=== PATIENT | female | born 1990 ===

== ENCOUNTER → 2021-01-03 | Outpatient (CLI) | payer OTHER ==
[2021-01-03 15:44] LABS: BASO % 0 % (0-3); EOS # 0.4 x10^3/uL (0.0-0.7); EOS % 4 % (0-3); HEMATOCRIT 35.1 % (36.0-47.0); HEMOGLOBIN 11.4 g/dL (12.0-15.5); LYMPH % 22 % (24-48); MEAN CORPUSCULAR HEMOGLOBIN 26 pg (25-35); MEAN CORPUSCULAR HGB CONC 32 g/dL (31-37); MEAN CORPUSCULAR VOLUME 80 fL (79-100); MONO # 0.8 x10^3/uL (0.0-1.1); MONO % 8 % (0-9); NEUT % 65 % (31-73); PLATELET COUNT 513 x10^3/uL (140-400); RED BLOOD COUNT 4.38 x10^6/uL (3.50-5.40); RED CELL DISTRIBUTION WIDTH 18.1 % (11.5-14.5); WHITE BLOOD COUNT 9.2 x10^3/uL (4.0-11.0)
[2021-01-03 19:09] LABS: PLT ESTIMATE INCREASED (ADEQUATE)
[2021-01-03 19:11] LABS: ANISOCYTOSIS SLIGHT; HYPOCHROMIA SLIGHT
== END ==
LOC: ONCLAB 15:00
PROVIDERS: ATTEND Internal Medicine Hematology & Oncology
DX: N92.0 Excessive and frequent menstruation with regular cycle (principal); D47.3 Essential (hemorrhagic) thrombocythemia
CPT/HCPCS: 82728; 83540; 83550; 85025